=== PATIENT | female | born 1950 | race Caucasian/White ===

== ENCOUNTER → 2018-06-19 | Outpatient (CLI) | payer MEDICARE, OTHER ==
[~2018-06-19] MED LIST: ANASTROZOLE1 MG PO; ASPIR 8181 M1; DIGOXIN250 MCG; LOPRESSOR25 PO; NEURONTIN 300300 M1 PO; VENLAFAXIN37.5 MG/1 PO; VOLTAREN GEL 1100 GM TOP
--- NOTE | ~2018-06-19 | PAINCON ---
[address] [address] PAIN MANAGEMENT CONSULTATION Name: KAMILLAWAGNER S Room: [facility] Dominguez#: [id number] Admission: 06/19/18 Attend Phys: Liliane Mandujano MD Discharge: Date of : 46 Report #: [id number] THIS REPORT FOR: //name// CC: Frank Stovall DATE OF SERVICE: 06/30/2018 HISTORY: Neck pain. CHIEF COMPLAINT: I would like to consider an injection in my neck, again. FOLLOWUP HISTORY: The patient is a 68-year-old female who has been seen in the pain clinic by Dr. Gatito Wilson. This is my first visit with the patient. States that she has had some pain and discomfort in her neck in the past. In 2016, she underwent injections in the cervical area by Dr. Wilson at the C2/C3, C3/C4 and C4/C5 for facet injections under fluoroscopy. She gleaned 75%-100% improvement in her pain in 06/2017. She has noted a slow return of the pain in the neck area. It involves her left neck, left shoulder and has produced some headaches on the left side. Noted some left eye discomfort. Also, has had some occasional numbness down into her left arm and hand. Notes that turning her head driving, cooking, cleaning, sleeping can all be affected by the pain and discomfort. Rates her pain as a 6/10 at this point. She has tried Voltaren gel. Finds that gabapentin 300 mg t.i.d. and ibuprofen are helpful p.r.n. Notes that the application of heat, cold as well as some stretching can be beneficial. She has returned for evaluation. ALLERGIES: SULFA, CIPROFLOXACIN, MEPERIDINE. CURRENT MEDICATIONS: Anastrozole 1 mg, aspirin 81 mg, doxepin 0.25 mg, Neurontin 300 mg t.i.d., Lopressor 25 mg, Effexor 37.5, Voltaren gel to the affected area. PAST MEDICAL HISTORY: Anemia, heart disease, colon problems, joint disease/arthritis fibromyalgia, gastritis, breast cancer. PAST SURGICAL HISTORY: Appendectomy on 12/24/1970; hysterectomy on 12/24/1990 partial; on 08/1981 ; on 12/24/1992 ovarian surgery/oophorectomy; on 08/2007 back surgery, disk; bilateral mastectomy on 08/18/2012. SOCIAL HISTORY: She is retired. REVIEW OF SYSTEMS: Generally good health, headaches, wears glasses, palpitations, frequent recurring headaches, lightheadedness, change in hair and nails, [place] [address] PAIN MANAGEMENT CONSULTATION Name: KAMILLAWAGNER S [id number] Admission: 06/19/18 Attend Phys: Liliane Mandujano MD Discharge: Date of : 46 Report #: [id number] PAIN CLINIC ASSESSMENT: 1. History of osteoarthritis. The patient is not being treated for osteoarthritis or rheumatoid arthritis. 2. Height 5 feet 2 inches, weight 129 pounds, BMI is 23. 3. Vital Signs: Blood pressure 142/77, heart rate 75, respiratory rate 16, room air saturation is 96%. 4. Pain assessment 08/17. 5. Fall history: The patient has not fallen in the last 3 months. 6. Blood thinner. The patient is not on a blood thinning medication. 7. Hypertension. The patient is being treated for hypertension. 8. Opioid therapy. The patient has not been receiving opioid medications. 9. Risk assessment tool. 10. Functional assessment tool. 11. Recreational drug use: The patient denies. 11. Tobacco: The patient does not smoke. 12. Alcohol: The patient denies frequent use of alcoholic beverages. PHYSICAL EXAMINATION: GENERAL: The patient is a well-developed, well-nourished white female. Appears her stated age. She is alert and oriented x 3. Affect is appropriate. Speech is fluent. HEENT: Normocephalic, atraumatic. Extraocular eye muscles intact. The patient complains of pain and discomfort in the neck area with extension, flexion, left and right, bending, left and right lateral rotation causes increased pain in the neck area. HEART: Regular rate. ABDOMEN: Nontender. EXTREMITIES: Upper extremity muscle strength judged to be 5-/5 lower extremity 5-/5. The patient without significant scoliosis, kyphosis or lordosis. Has pain and discomfort in the neck area. IMPRESSION: 1. Symptomatic cervical spondylosis in the C2-C3, C3-C4, C4-C5 facet areas. 2. Status post breast cancer, chemotherapy and radiation treatment. 3. History of coronary artery disease, history of atrial fibrillation, chronic anxiety, fibromyalgia. 4. History of back surgery. RECOMMENDATIONS: We discussed treatment options with the patient. The patient has undergone cervical facet injections. I explained to the patient that Dr. Wilson did that procedure. I do not do that procedure. She remarked that she will follow up with her primary doctor. She will seek to have the treatment in a pain clinic closer to home. A script for diclofenac 100 mg to be applied to the cervical area as needed was written. The patient will call us if she has [address] [place] [address] PAIN MANAGEMENT CONSULTATION Name: KAMILLAWAGNER Room: [facility]#: [id number] Admission: 06/19/18 Attend Phys: Liliane Mandujano MD Discharge: Date of : 46 Report #: [id number] any concerns for treatment in the future. We would like to thank you for letting us participate in her care. We hope she continues to improve. By: [id number]. Reuben Mandujano MD /VICKI
== END ==
LOC: M.PC 05:31
DX: M47.812 Spondylosis without myelopathy or radiculopathy, cervical region (principal); I25.10 Atherosclerotic heart disease of native coronary artery without angina pectoris; I48.91 Unspecified atrial fibrillation; M79.7 Fibromyalgia; F41.9 Anxiety disorder, unspecified; Z85.3 Personal history of malignant neoplasm of breast

== ENCOUNTER → 2019-05-28 | Outpatient (CLI) | payer MEDICARE, OTHER | LOC: M.RAD 13:13 | DX: M85.89 Other specified disorders of bone density and structure, multiple sites (principal); Z78.0 Asymptomatic menopausal state; Z85.3 Personal history of malignant neoplasm of breast ==

== ENCOUNTER → 2021-05-30 | Outpatient (CLI) | payer MEDICARE, OTHER | LOC: M.RAD 11:00 | PROVIDERS: ATTEND Internal Medicine Hematology & Oncology | DX: M85.80 Other specified disorders of bone density and structure, unspecified site (principal); M81.0 Age-related osteoporosis without current pathological fracture ==